=== PATIENT | male | born 1985 | race African-American/Black ===

== ENCOUNTER → 2020-02-04 | Outpatient (CLI) | payer OTHER | LOC: COL.RAD 07:25 | DX: M54.17 Radiculopathy, lumbosacral region (principal); M51.36 Other intervertebral disc degeneration, lumbar region; M47.816 Spondylosis without myelopathy or radiculopathy, lumbar region; M51.26 Other intervertebral disc displacement, lumbar region; M48.061 Spinal stenosis, lumbar region without neurogenic claudication ==

== ENCOUNTER → 2020-09-27 | Outpatient (CLI) | payer OTHER | LOC: MHCPAIN 10:22 | DX: M47.816 Spondylosis without myelopathy or radiculopathy, lumbar region (principal); M54.5 Low back pain; M53.3 Sacrococcygeal disorders, not elsewhere classified; G89.29 Other chronic pain | CPT/HCPCS: G0463 ==